=== PATIENT | female | born 1995 | race Caucasian/White ===

== ENCOUNTER 2019-05-22 19:04 | Emergency (ER) | payer MEDICAID, OTHER ==
[~2019-05-22] VITALS: Ht 170.2 cm; Wt 74.8 kg
[~2019-05-22 19:04] MED LIST: IBUP-2213 PO
[2019-05-22 19:20] VITALS: BP 106/56
--- NOTE | 2019-05-22 19:20 | NUR ---
TO BED # 08 AMBULATORY
--- NOTE | 2019-05-22 19:29 | NUR ---
24/F PRESENTS TO ED WITH FRIEND, C/O GENERALIZED WEAKNESS, NUMBNESS BL ARMS AND FEET, NAUSEA; REPORTS THAT SYMPTOMS STARTED LAST NIGHT WHILE ON A TRIP FROM [place] THIS WEEKEND. PT AWAKE AND ALERT, PERRLA [place], PT CRYING, SKIN NORMAL WARM AND DRY, RR EVEN AND UNLABORED. LUNG SOUNDS CLEAR BL. BS ACTIVE X4, ABD SOFT FLAT MILDLY TENDER DIFFUSELY. +2 STRENGTH ALL EXTREMITIES. DENIES MED HX, RX OR OTC.
--- NOTE | 2019-05-22 19:35 | NUR ---
DR ARRIOLA AT BEDSIDE FOR MSE
[2019-05-22] MEDS ORDERED: LORazepam 2 MG/ML VIAL IM ONE (19:45)
[2019-05-22 20:27] VITALS: BP 118/69
== END 2019-05-22 20:28 | disposition home or self-care (01) ==
LOC: MED 19:04
DX: F41.9 Anxiety disorder, unspecified (principal); R19.7 Diarrhea, unspecified; Z79.899 Other long term (current) drug therapy
CPT/HCPCS: 81025; 96372; 99283; J2060

== ENCOUNTER 2020-03-25 12:29 | Emergency (ER) | payer MEDICAID ==
[~2020-03-25] VITALS: Ht 170.2 cm; Wt 68.0 kg
[2020-03-25 12:47] VITALS: BP 111/74
[2020-03-25 13:37] LABS: BASOPHILS # (AUTO) 0.1 K/uL (0.00-0.22); BASOPHILS % (AUTO) 2.2 % (0.0-2.0); EOSINOPHILS # (AUTO) 0.1 K/uL (0-0.4); EOSINOPHILS % (AUTO) 1.8 % (0.0-4.0); HEMATOCRIT 41.8 % (36-48); HEMOGLOBIN 13.7 g/dL (12.0-16.0); LYMPHOCYTES # (AUTO) 1.7 K/uL (2.5-16.5); LYMPHOCYTES % (AUTO) 35.8 % (20.5-51.1); MEAN CORPUSCULAR HEMOGLOBIN 30 pg (27-31); MEAN CORPUSCULAR HGB CONC 33 g/dL (33-37); MEAN CORPUSCULAR VOLUME 92.6 fL (80-94); MONOCYTES # (AUTO) 0.2 K/uL (0.8-1.0); MONOCYTES % (AUTO) 5.1 % (1.7-9.3); NEUTROPHILS # (AUTO) 2.7 K/uL (1.8-7.7); NEUTROPHILS % (AUTO) 55.1 % (42.2-75.2); PLATELET COUNT (AUTO) 268 K/uL (140-450); RED BLOOD CELL COUNT(AUTO) 4.52 MIL/uL (4.20-5.40); RED CELL DISTRIBUTION WIDTH 12.2 % (11.6-13.7); WHITE BLOOD COUNT (AUTO) 4.9 K/uL (4.8-10.8)
[2020-03-25 13:40] LABS: APPEARANCE,URINE CLEAR (CLEAR); BILIRUBIN,URINE 1+ (NEGATIVE); BLOOD, URINE NEGATIVE (NEGATIVE); COLOR,URINE YELLOW (YELLOW); LEUKOCYTE ESTERASE ,URINE NEGATIVE (NEGATIVE); NITRITE, URINE NEGATIVE (NEGATIVE); PH,URINE 5.5 (5.0-9.0); UGLUCOSE NEGATIVE (NEGATIVE)
[2020-03-25 15:00] VITALS: BP 104/69
== END 2020-03-25 15:00 | disposition home or self-care (01) ==
LOC: MED 12:29
DX: O36.4XX0 Maternal care for intrauterine death, not applicable or unspecified (principal); Z3A.11 11 weeks gestation of pregnancy
CPT/HCPCS: 36415; 76801; 81003; 81025; 84702; 85025; 86900; 86901; 99284; Q0092; 96365; 99285

== ENCOUNTER 2020-04-06 11:38 | Inpatient (IN) | payer MEDICAID ==
[~2020-04-06] VITALS: Ht 170.2 cm; Wt 69.4 kg
--- NOTE | 2020-04-06 11:38 | NUR ---
Patient ambulated to bed 6. RN evaluating patient at bedside.
[2020-04-06 11:49] VITALS: BP 117/75
--- NOTE | 2020-04-06 11:54 | NUR ---
PT C/O VAGINAL BLEEDING WITH LOWER ABD CRAMPING. PT STATES THAT SHE STARTED SPOTTING YESTERDAY. IN THE AM, PT NOTICED SHE HAD VAGINAL BLEEDING. PT STATES SHE WAS . PT CONTACTED HER OBGYN. PT STATES SHE IS HAVING MISSCAIRAGE. PT STATES THAT THE BABY'S HEART BEAT STOPPED AT 11 WEEKS THE PT STATES THAT SHE CHANGED HER PAD 2 TIME BEFORE ARRIVAL TO ER. VSS. PT IS RESTING AT BEDSIDE. [facility] NKA/NKDA.
--- NOTE | 2020-04-06 12:03 | NUR ---
ULTRA SOUND AT BEDSIDE.
--- NOTE | 2020-04-06 12:10 | NUR ---
LAB AT BEDSIDE
[2020-04-06 12:18] LABS: BASOPHILS % (AUTO) 0.6 % (0.0-2.0); EOSINOPHILS # (AUTO) 0.1 K/uL (0-0.4); EOSINOPHILS % (AUTO) 1.2 % (0.0-4.0); HEMATOCRIT 39.5 % (36-48); HEMOGLOBIN 13.3 g/dL (12.0-16.0); LYMPHOCYTES # (AUTO) 1.6 K/uL (2.5-16.5); LYMPHOCYTES % (AUTO) 23.9 % (20.5-51.1); MEAN CORPUSCULAR HEMOGLOBIN 31 pg (27-31); MEAN CORPUSCULAR HGB CONC 34 g/dL (33-37); MEAN CORPUSCULAR VOLUME 92.8 fL (80-94); MONOCYTES # (AUTO) 0.3 K/uL (0.8-1.0); MONOCYTES % (AUTO) 4.1 % (1.7-9.3); NEUTROPHILS # (AUTO) 4.7 K/uL (1.8-7.7); NEUTROPHILS % (AUTO) 70.2 % (42.2-75.2); PLATELET COUNT (AUTO) 252 K/uL (140-450); RED BLOOD CELL COUNT(AUTO) 4.26 MIL/uL (4.20-5.40); RED CELL DISTRIBUTION WIDTH 12.2 % (11.6-13.7); WHITE BLOOD COUNT (AUTO) 6.7 K/uL (4.8-10.8)
--- NOTE | 2020-04-06 12:30 | NUR ---
Dr. Daley is evaluating the patient at bedside.
[2020-04-06 12:34] LABS: APPEARANCE,URINE BLOODY (CLEAR); BILIRUBIN,URINE NEGATIVE (NEGATIVE); BLOOD, URINE 4+ (NEGATIVE); COLOR,URINE RED (YELLOW); UGLUCOSE NEGATIVE (NEGATIVE)
[2020-04-06 12:35] LABS: LEUKOCYTE ESTERASE ,URINE 1+ (NEGATIVE); NITRITE, URINE POSITIVE (NEGATIVE)
[2020-04-06 12:39] LABS: RBC,URINE >100 /HPF (0-5)
--- NOTE | 2020-04-06 12:54 | NUR ---
PT IS RESTING AT BEDSIDE. PT IS AWAKE. R/R EVEN AND UNLABORED.
[2020-04-06] MEDS ORDERED: MISOPROSTOL 200 MCG TAB PO ONE (13:25)
--- NOTE | 2020-04-06 13:31 | NUR ---
CALLED DR STREETER, WAITING FOR CALL BACK FOR MEDICATION CLARIFICATION.
[2020-04-06] MEDS ORDERED: ONDANSETRON 4 MG/2 ML VIAL IVP ONE (14:00)
[2020-04-06] MEDS ORDERED: ACETAMINOPHEN 325 MG TAB PO PRN (14:15)
[2020-04-06] MEDS ORDERED: DOCUSATE SODIUM 100 MG GELCAP PO PRN (14:15)
[2020-04-06] MEDS ORDERED: ONDANSETRON 4 MG/2 ML VIAL IM/IVP PRN (14:15)
[2020-04-06 14:20] VITALS: BP 96/61
[2020-04-06] MEDS ORDERED: IBUPROFEN 800 MG TAB PO PRN (14:20)
--- NOTE | 2020-04-06 14:20 | NUR ---
RECEIVED PATIENT FROM ED NURSE FOR CONTINUITY OF CARE. PATIENT IS TRANSPORTED VIA GURNEY AND AMBULATED TO THE ROOM. AAOX4, KAZAKH SPEAKING. RESPIRATIONS EVEN AND UNLABORED, ROOM AIR. VISIBLE CHEST RISE AND FALL NOTED. MED-SURG. ABDOMEN SOFT AND NONTENDER. SKIN WARM, DRY, AND INTACT. IV ON THE RIGHT HAND G20, SALINE LOCK. DX: INCOMPLETE . DIAPER IS SOAKED WITH BRIGHT RED BLOOD. PATIENT STATED SHE FEELS SLIGHTLY LIGHTHEADED. FALL PRECAUTION. BED IN LOW POSITION. CALL LIGHT IS WITHIN REACH. WILL CONTINUE TO MONITOR.
--- NOTE | 2020-04-06 14:30 | NUR ---
VITAL SIGNS CHECKED. MRSA NARES SWAB COLLECTED
--- NOTE | 2020-04-06 14:36 | NUR ---
Patient will be admitted to care of DR. FARMER. Admited to [facility]. Will go to room 105B. Belongings list completed. Report to DINORA MENDEZ.
[2020-04-06 14:49] LABS: ALBUMIN 3.7 g/dL (3.4-5.0); ANION GAP 13.9 (8-16); CARBON DIOXIDE 24.7 mmol/L (21-32); CREATININE 0.8 mg/dL (0.6-1.3); MAGNESIUM 1.6 mg/dL (1.8-2.4); PHOSPHORUS 3.2 mg/dL (2.5-4.9); POTASSIUM 3.6 mmol/L (3.5-5.1); TOTAL BILIRUBIN 1.2 mg/dL (0.0-1.0)
[2020-04-06] MEDS: NACL 0.9% 1,000 ML IV SCH (14:56)
--- NOTE | 2020-04-06 15:07 | NUR ---
HANG NS AT A RATE OF 10 ML/HR PER MD ORDER Addendum: 04/06/20 at 1843 by Princess Ruth Mitchell RN AT 100 ML/HR
[2020-04-06 15:20] LABS: PROTHROMBIN TIME 10.3 secs (10.8-13.4)
[2020-04-06 16:00] VITALS: BP 94/62
--- NOTE | 2020-04-06 16:06 | NUR ---
PATIENT C/O OF PELVIC PAIN 06/18. WILL PAGE DR. MCDANIEL FOR ORDER. WILL WAIT FOR CALL BACK.
[2020-04-06] MEDS: NITROFURANTOIN 100 MG CAP PO SCH (16:38)
--- NOTE | 2020-04-06 16:49 | NUR ---
DR. OVALLE, RESIDENT DOCTOR OF DR. MCDANIEL, AT BEDSIDE.
[2020-04-06] MEDS ORDERED: HYDROcodone/APAP 5/325 MG 1 TAB TAB PO PRN (16:55)
[2020-04-06] MEDS ORDERED: MISOPROSTOL 200 MCG TAB PO SCH (17:25)
--- NOTE | 2020-04-06 17:37 | NUR ---
PATIENT SIGNED CONSENT FOR DILATATION AND CURETTAGE. EXPLAINED THAT IF SHE HAS ANY QUESTIONS, ASK THE SURGEON OR ANY QUESTIONS THAT IM ABLE TO ANSWER. PATIENT VERBALIZED UNDERSTANDING
--- NOTE | 2020-04-06 17:39 | NUR ---
GIVEN CYTOTEC PO. EXPLAINED MEDICATION. PATIENT VERBALIZED UNDERSTANDING. PATIENT C/O OF PELVIC PAIN MOSTLY IN THE LEFT SIDE OF 3/10 PAIN. PATIENT STATED SHE DOES NOT WANT PAIN MEDICATION RIGHT NOW. WILL CONTINUE TO MONITOR
--- NOTE | 2020-04-06 18:01 | NUR ---
PATIENT HAD ANOTHER PAD THAT IS SOAKED WITH BRIGHT RED BLOOD. VP SECURITIES ASSISTING/CHANGING PATIENT.
[2020-04-06] MEDS ORDERED: ONDANSETRON 4 MG/2 ML VIAL ONE (19:00)
[2020-04-06] MEDS ORDERED: PROPOFOL 200 MG/20 ML VIAL IV ONE (19:00)
[2020-04-06] MEDS ORDERED: SEVOFLURANE 250 ML BTL INH ONE (19:00)
[2020-04-06] MEDS ORDERED: MIDAZOLAM 2 MG/2 ML VIAL ONE (19:00)
--- NOTE | 2020-04-06 19:13 | NUR ---
ENDORSE PT AND GAVE REPORT TO THE AIRSET MOLDER RN. PT IS CURRENTLY IN THE OPERATION ROOM.
--- NOTE | 2020-04-06 19:15 | NUR ---
PT IS OFF UNIT TO SX. RECEIVED REPORT FROM AM SHIFT RN FOR PT'S CONTINUITY OF CARE.
[2020-04-06] MEDS ORDERED: HYDROmorphone PFS 2 MG/ML SYR ONE (20:08)
[2020-04-06] MEDS: HYDROmorphone 1 MG/ML AMP IVP PRN ×2 (20:09→20:19)
[2020-04-06 20:17] LABS: BASOPHILS # (AUTO) 0.1 K/uL (0.00-0.22); BASOPHILS % (AUTO) 0.7 % (0.0-2.0); EOSINOPHILS % (AUTO) 0.2 % (0.0-4.0); HEMATOCRIT 33.6 % (36-48); HEMOGLOBIN 11.3 g/dL (12.0-16.0); LYMPHOCYTES % (AUTO) 22.1 % (20.5-51.1); MEAN CORPUSCULAR HEMOGLOBIN 31 pg (27-31); MEAN CORPUSCULAR HGB CONC 34 g/dL (33-37); MEAN CORPUSCULAR VOLUME 92.8 fL (80-94); MONOCYTES # (AUTO) 0.4 K/uL (0.8-1.0); MONOCYTES % (AUTO) 4.4 % (1.7-9.3); NEUTROPHILS # (AUTO) 6.6 K/uL (1.8-7.7); NEUTROPHILS % (AUTO) 72.6 % (42.2-75.2); PLATELET COUNT (AUTO) 245 K/uL (140-450); RED BLOOD CELL COUNT(AUTO) 3.62 MIL/uL (4.20-5.40); RED CELL DISTRIBUTION WIDTH 12.1 % (11.6-13.7); WHITE BLOOD COUNT (AUTO) 9.1 K/uL (4.8-10.8)
[2020-04-06] MEDS ORDERED: LACTATED RINGERS 1,000 ML IV SCH (20:21)
[2020-04-06] MEDS ORDERED: ONDANSETRON 4 MG/2 ML VIAL IVP PRN (20:25)
[2020-04-06] MEDS ORDERED: diphenhydrAMINE 50 MG/ML VIAL IVP PRN (20:25)
--- NOTE | 2020-04-06 20:45 | NUR ---
PT BACK IN UNIT, POST OP VS PROTOCOL INITIATED. PT DENIES ANY PAIN AT THIS TIME. PT IS AAOX4, RESTING COMFORTABLY. EXPLAINED TO PT THE TICKER INSTALLER ROUTINE, PT VERBALIZED UNDERSTANDING. PT REQUESTED AND PROVIDED ICE WATER, PT TOLERATING IT WELL.
--- NOTE | 2020-04-06 23:00 | NUR ---
PT LYING DOWN IN BED,STATES CAN'T GET UP/WEAK DT SX, INSTRUCTED PT TO USE CALL LIGHT WHEN NEEDED, PT VERBALIZED UNDERSTANDING. PT'S BP RANGE BETWEEN 92-94 SYSTOLIC AND 48-59 DIASTOLIC. WILL INFORM MD. PT DENIES ANY PAIN.
[2020-04-07] VITALS: BP 94/59
--- NOTE | 2020-04-07 | NUR ---
NOTIFIED DR. MCDANIEL RE: PT'S WEAKNESS AND BP. MD ORDERED PT TO BE MOVED INPATIENT UNTIL PT TOLERATES REGULAR DIET. MD AWARE WITH BP, NO NEW ORDERS. WILL CONTINUE TO MONITOR PT.
[2020-04-07] MEDS: NACL 0.9% 1,000 ML IV SCH ×2 (01:05→10:48)
--- NOTE | 2020-04-07 02:15 | NUR ---
PT ASLEEP WITH NO SIGNS OF DISTRESS. WILL CONTINUE TO MONITOR PT.
--- NOTE | 2020-04-07 04:45 | NUR ---
PT AMBULATED TO THE RESTROOM, VOIDED, NOTED VAGINAL BLEEDING X 2 PADS THROUGHOUT THE SHIFT. PT DENIES ANY PAIN, STATES "FEELS A LITTLE LIGHT HEADED". PT'S LINENS CHANGED AND PT MADE COMFORTABLE. WILL CONTINUE TO MONITOR PT.
--- NOTE | 2020-04-07 06:41 | NUR ---
RE-CHECKED PT'S BLOOD PRESSURE, BRACHIAL BP 80/45 AND 81/46 AND RIGHT CALF 103/60. DR. MCDANIEL AWARE, NO NEW ORDERS. PT LYING DOWN RESTING, DENIES PAIN OR DISCOMFORT. WILL ENDORSE TO AM SHIFT RN FOR PT'S CONTINUITY OF CARE.
--- NOTE | 2020-04-07 07:20 | NUR ---
RECEIVED REPORT FROM NIGHT NURSE FOR CONTINUITY OF CARE, PT IS STABLE, PT IS ASLEEP, RESPIRATIONS ARE EVEN AND UNLABORED ON ROOM AIR, PT HAS RIGHT AC 20G INFUSING NORMAL SALINE AT 100ML/H, BED IN LOW POSITION, SAFETY MEASURES IN PLACE, WILL INTRODUCE SELF AND UPDATE WHITEBOARD, CALL LIGHT WITHIN REACH, WILL CONTINUE TO MONITOR.
[2020-04-07 08:00] VITALS: BP 91/50
[2020-04-07] MEDS: NITROFURANTOIN 100 MG CAP PO SCH (08:17)
--- NOTE | 2020-04-07 08:18 | NUR ---
ADMINISTERED SCHEDULED MEDICATION, MEDICATION EDUCATION GIVEN, PT VERBALIZED UNDERSTANDING, PT TOLERATED MEDICATION WELL, PT IS STABLE, CALL LIGHT WITHIN REACH.
--- NOTE | 2020-04-07 09:46 | NUR ---
PATIENT HAS BEEN SCREENED AND CATEGORIZED MODERATE NUTRITION RISK. PATIENT WILL BE SEEN WITHIN 3-5 DAYS OF ADMISSION. 04/09/2020-04/11/[address]
--- NOTE | 2020-04-07 10:49 | NUR ---
ADMINISTERED SCHEDULED FLUIDS, EDUCATION GIVEN, PT VERBALIZED UNDERSTANDING, PT IS STABLE, NO SIGNS OF DISTRESS NOTED, CALL LIGHT WITHIN REACH.
--- NOTE | 2020-04-07 11:00 | NUR ---
PT RESTING IN BED, TALKING ON THE PHONE, NO SIGNS OF DISTRESS NOTED, RESPIRATIONS ARE EVEN AND UNLABORED ON ROOM AIR, CALL LIGHT WITHIN REACH.
--- NOTE | 2020-04-07 13:30 | NUR ---
PT DISCHARGED HOME. DISCHARGED INSTRUCTIONS GIVEN, PT VERBALIZED UNDERSTANDING, IV REMOVED, PT WHEELED OUT TO CAR, PT STABLE.
== END 2020-04-07 13:30 | disposition home or self-care (01) | DRG 544 ==
LOC: MED 11:38 → MTU 13:56 → MDS 13:56 → UNDOADMIN 21:29 → MTU 21:29
PROVIDERS: ADMIT Obstetrics & Gynecology; ATTEND Obstetrics & Gynecology
PROC: 10D17ZZ Extraction of Products of Conception, Retained, Via Natural or Artificial Opening (ICD-10-PCS; principal; 2020-04-07)
DX: O03.38 Urinary tract infection following incomplete spontaneous abortion (principal); O03.1 Delayed or excessive hemorrhage following incomplete spontaneous abortion
CPT/HCPCS: 36415; 76817; 80053; 81001; 83735; 84100; 84702; 85025; 85610; 85730; 87081; 87086; 96374; 99285; J1170; J2250; J2405; J2704; J7030; Q0092

== ENCOUNTER 2020-07-16 07:46 | Emergency (ER) | payer SELFPAY ==
[~2020-07-16] VITALS: Ht 170.2 cm; Wt 71.2 kg
[2020-07-16 07:53] VITALS: BP 130/84
--- NOTE | 2020-07-16 08:04 | NUR ---
PT AMBULATED TO BED 4. STEADY GAIT.
--- NOTE | 2020-07-16 08:12 | NUR ---
25 YO FEMALE CO WEAKNESS X 1 WEEK. PT SAYS AFTER HER Miscarriage A COUPLE OF MONTHS AGO SHES BEEN HAVING HEAVIER BLEEDING DURING HER MENSTRUAL. +FATIGUE. NKDA. PMH: MISCARRIAGE
[2020-07-16 08:47] LABS: BASOPHILS % (AUTO) 0.8 % (0.0-2.0); EOSINOPHILS # (AUTO) 0.1 K/uL (0-0.4); EOSINOPHILS % (AUTO) 1.4 % (0.0-4.0); HEMATOCRIT 39.9 % (36-48); HEMOGLOBIN 12.4 g/dL (12.0-16.0); LYMPHOCYTES # (AUTO) 1.5 K/uL (2.5-16.5); LYMPHOCYTES % (AUTO) 35.9 % (20.5-51.1); MEAN CORPUSCULAR HEMOGLOBIN 25 pg (27-31); MEAN CORPUSCULAR HGB CONC 31 g/dL (33-37); MONOCYTES # (AUTO) 0.4 K/uL (0.8-1.0); MONOCYTES % (AUTO) 9.7 % (1.7-9.3); NEUTROPHILS # (AUTO) 2.2 K/uL (1.8-7.7); NEUTROPHILS % (AUTO) 52.2 % (42.2-75.2); PLATELET COUNT (AUTO) 284 K/uL (140-450); RED BLOOD CELL COUNT(AUTO) 4.98 MIL/uL (4.20-5.40); RED CELL DISTRIBUTION WIDTH 16.6 % (11.6-13.7); WHITE BLOOD COUNT (AUTO) 4.3 K/uL (4.8-10.8)
[2020-07-16 08:58] LABS: ANION GAP 10.2 (8-16); CARBON DIOXIDE 28.6 mmol/L (21-32); CREATININE 0.8 mg/dL (0.6-1.3); POTASSIUM 3.8 mmol/L (3.5-5.1)
[2020-07-16 09:45] VITALS: BP 127/81
--- NOTE | 2020-07-16 09:46 | NUR ---
Patient discharged with v/s stable. Written and verbal after care instructions given and explained. Patient verbalized understanding. Ambulatory with steady gait. All questions addressed prior to discharge. Advised to follow up with PMD.
== END 2020-07-16 09:46 | disposition home or self-care (01) ==
LOC: MED 07:46
DX: R53.1 Weakness (principal); F12.90 Cannabis use, unspecified, uncomplicated; Z79.899 Other long term (current) drug therapy; Z98.890 Other specified postprocedural states
CPT/HCPCS: 36415; 80048; 81025; 84703; 85025; 99283

== ENCOUNTER 2021-05-17 12:47 | Emergency (ER) | payer MEDICAID, SELFPAY ==
[~2021-05-17] VITALS: Ht 170.2 cm; Wt 81.6 kg
[2021-05-17 12:52] VITALS: BP 112/71
--- NOTE | 2021-05-17 13:02 | NUR ---
Patient ambulated to bed 12 with steady/even gait. Placed into a gown.
--- NOTE | 2021-05-17 13:06 | NUR ---
Patient ambulated with steady/even gait to restroom for urine sample.
--- NOTE | 2021-05-17 13:09 | NUR ---
26 y/o female from home 33 wks report waking up @ 0600 with headache; frontal and occiptal 8/10, throbbing/constant, non-radiating. +Fatigue/weakness, +blurry vision, +nausea, +vomiting x 3 episodes (-)hemaemesis. Tylenol 500mg 0600 without relief; reports Tylenol normally helps but states symptoms persisted. A1. LMP: 09/2020. PMH: Denies Meds: NKA Sx: DnC 2019
[2021-05-17] MEDS ORDERED: NACL 0.9% 1,000 ML IV ONE (13:20)
--- NOTE | 2021-05-17 13:55 | NUR ---
OB NURSE AT BEDSIDE FOR HEART TONES
--- NOTE | 2021-05-17 13:59 | NUR ---
HEART TONE 146 PER OB NURSE
[2021-05-17] MEDS ORDERED: ACETAMINOPHEN EXTRA STRENGTH 500 MG TAB PO ONE (14:00)
--- NOTE | 2021-05-17 14:00 | NUR ---
PT ALERT AND AWAKE, BREATHING EVEN AND UNLABORED, NO DISTRESS NOTED. ALL NEEDS MET AT THIS TIME.
[2021-05-17 14:09] LABS: APPEARANCE,URINE CLEAR (CLEAR); BILIRUBIN,URINE NEGATIVE (NEGATIVE); BLOOD, URINE NEGATIVE (NEGATIVE); COLOR,URINE YELLOW (YELLOW); LEUKOCYTE ESTERASE ,URINE TRACE (NEGATIVE); NITRITE, URINE NEGATIVE (NEGATIVE); PH,URINE 7.5 (5.0-9.0); UGLUCOSE NEGATIVE (NEGATIVE)
[2021-05-17] MEDS ORDERED: ACET-10509 PO (14:32)
[2021-05-17 14:59] VITALS: BP 110/79
--- NOTE | 2021-05-17 15:00 | NUR ---
Patient discharged with v/s stable. Written and verbal after care instructions about third trimester of , general headaches without cause given and explained. Patient alert, oriented and verbalized understanding of instructions. Ambulatory with steady gait. All questions addressed prior to discharge. ID band removed. Patient advised to follow up with PMD. Rx of about tylenol given. Patient educated on indication of medication including possible reaction and side effects. Opportunity to ask questions provided and answered.
== END 2021-05-17 15:00 | disposition home or self-care (01) ==
LOC: MED 12:47
DX: O26.893 Other specified pregnancy related conditions, third trimester (principal); R51.9 Headache, unspecified; Z3A.33 33 weeks gestation of pregnancy; Z98.890 Other specified postprocedural states; Z79.899 Other long term (current) drug therapy
CPT/HCPCS: 81003; 81025; 96360; 99284; J7030

== ENCOUNTER 2021-06-17 19:30 | Observation (INO) | payer MEDICAID ==
[~2021-06-17] VITALS: Ht 170.2 cm; Wt 88.9 kg
[~2021-06-17 19:30] MED LIST changes: +ACET-10509 PO
[2021-06-17] MEDS ORDERED: APAP/BUTAL/CAFF 325/50/40 MG 1 TAB PO PRN ×2 (20:10→20:20)
[2021-06-17] MEDS ORDERED: LACTATED RINGERS 1,000 ML IV SCH ×2 (20:10→21:10)
[2021-06-17 21:09] VITALS: BP 116/81
[2021-06-17 21:19] LABS: BASOPHILS % (AUTO) 0.2 % (0.0-2.0); EOSINOPHILS # (AUTO) 0.1 K/uL (0-0.4); EOSINOPHILS % (AUTO) 1.9 % (0.0-4.0); HEMATOCRIT 33.8 % (36-48); HEMOGLOBIN 11.3 g/dL (12.0-16.0); LYMPHOCYTES # (AUTO) 1.8 K/uL (2.5-16.5); LYMPHOCYTES % (AUTO) 35.2 % (20.5-51.1); MEAN CORPUSCULAR HEMOGLOBIN 31 pg (27-31); MEAN CORPUSCULAR HGB CONC 34 g/dL (33-37); MEAN CORPUSCULAR VOLUME 91.4 fL (80-94); MONOCYTES # (AUTO) 0.4 K/uL (0.8-1.0); MONOCYTES % (AUTO) 7.3 % (1.7-9.3); NEUTROPHILS # (AUTO) 2.8 K/uL (1.8-7.7); NEUTROPHILS % (AUTO) 55.4 % (42.2-75.2); PLATELET COUNT (AUTO) 240 K/uL (140-450); RED CELL DISTRIBUTION WIDTH 13.2 % (11.6-13.7); WHITE BLOOD COUNT (AUTO) 5.1 K/uL (4.8-10.8)
[2021-06-17 21:22] LABS: APPEARANCE,URINE SL CLOUDY (CLEAR); BILIRUBIN,URINE NEGATIVE (NEGATIVE); BLOOD, URINE NEGATIVE (NEGATIVE); COLOR,URINE YELLOW (YELLOW); LEUKOCYTE ESTERASE ,URINE NEGATIVE (NEGATIVE); NITRITE, URINE NEGATIVE (NEGATIVE); UGLUCOSE NEGATIVE (NEGATIVE)
[2021-06-17 21:43] LABS: ALBUMIN 2.3 g/dL (3.4-5.0); ANION GAP 11.6 (8-16); CARBON DIOXIDE 24.1 mmol/L (21-32); CREATININE 0.6 mg/dL (0.6-1.3); POTASSIUM 3.7 mmol/L (3.5-5.1); TOTAL BILIRUBIN 0.4 mg/dL (0.0-1.0)
== END 2021-06-17 23:00 | disposition home or self-care (01) ==
LOC: MLD 19:30
PROVIDERS: ADMIT Obstetrics & Gynecology; ATTEND Obstetrics & Gynecology
DX: O26.893 Other specified pregnancy related conditions, third trimester (principal); R51.9 Headache, unspecified; Z3A.37 37 weeks gestation of pregnancy
CPT/HCPCS: 36415; 59025; 80053; 81003; 85025; 96360; 96361; G0378

== ENCOUNTER 2021-06-25 02:13 | Emergency (ER) | payer MEDICAID ==
[~2021-06-25] VITALS: Ht 170.2 cm; Wt 89.8 kg
[2021-06-25 02:20] VITALS: BP 116/82
--- NOTE | 2021-06-25 02:20 | NUR ---
TO BED AMBULATORY
--- NOTE | 2021-06-25 02:44 | NUR ---
ERMD AT BEDSIDE.
--- NOTE | 2021-06-25 02:48 | NUR ---
PT BIB SELF FOR C/C HEADACHE SINCE 1999 LAST NIGHT. + N/V. VSS. MED HX: MISCARRIAGE ALLERGIES: NKA
[2021-06-25] MEDS ORDERED: MORPHINE SULFATE 4 MG/ML SYR IM ONE (02:50)
[2021-06-25] MEDS ORDERED: ONDANSETRON 4 MG ODT PO ONE (02:50)
[2021-06-25 03:50] VITALS: BP 125/76
[2021-06-25] MEDS ORDERED: PRETAB PO (22:58)
== END 2021-06-25 03:50 | disposition home or self-care (01) ==
LOC: MED 02:13
DX: O99.353 Diseases of the nervous system complicating pregnancy, third trimester (principal); R51.9 Headache, unspecified; Z3A.39 39 weeks gestation of pregnancy; Z79.1 Long term (current) use of non-steroidal anti-inflammatories (NSAID); Z79.899 Other long term (current) drug therapy
CPT/HCPCS: 81002; 96372; 99283; J2270; Q0162

== ENCOUNTER 2021-08-23 18:52 | Emergency (ER) | payer MEDICAID, SELFPAY ==
[~2021-08-23] VITALS: Ht 170.2 cm; Wt 74.4 kg
[~2021-08-23 18:52] MED LIST changes: -ACET-10509 PO; -IBUP-2213 PO; +PRETAB PO
[2021-08-23 18:58] VITALS: BP 153/93
[2021-08-23] MEDS ORDERED: LIDOCAINE MPF 1% 10 MG/ML VIAL INJ ONE (19:20)
--- NOTE | 2021-08-23 19:25 | NUR ---
LEFT GREAT TOE DRESSED WITH BACITRACIN AND DSD. PT TEACHING DONE
--- NOTE | 2021-08-23 19:30 | NUR ---
received in bed 7 with c/o left toe pain after dropping heavy box on left great toa at approx 1600. Nail is avulsed.
[2021-08-23] MEDS ORDERED: NAPR-54 PO (19:40)
[2021-08-23] MEDS ORDERED: BACITRACIN OINT 500 UNITS/GM PKT TP ONE (19:45)
[2021-08-23 19:53] VITALS: BP 153/93
== END 2021-08-23 19:53 | disposition home or self-care (01) ==
LOC: MED 18:52
DX: S91.202A Unspecified open wound of left great toe with damage to nail, initial encounter (principal); Z79.1 Long term (current) use of non-steroidal anti-inflammatories (NSAID); Z79.899 Other long term (current) drug therapy; W22.8XXA Striking against or struck by other objects, initial encounter; Y92.89 Other specified places as the place of occurrence of the external cause; Y93.89 Activity, other specified; Y99.8 Other external cause status
CPT/HCPCS: 11730; 99284; J2001

== ENCOUNTER 2021-09-24 16:23 | Observation (INO) | payer OTHER, SELFPAY ==
[~2021-09-24] VITALS: Ht 170.2 cm; Wt 63.5 kg
[~2021-09-24 16:23] MED LIST changes: +NAPR-54 PO
[2021-09-24 16:48] VITALS: BP 105/54
[2021-09-24 17:29] LABS: BASOPHILS % (AUTO) 0.3 % (0.0-2.0); EOSINOPHILS % (AUTO) 0.5 % (0.0-4.0); HEMATOCRIT 41.6 % (36-48); HEMOGLOBIN 13.9 g/dL (12.0-16.0); LYMPHOCYTES # (AUTO) 1.5 K/uL (2.5-16.5); MEAN CORPUSCULAR HEMOGLOBIN 28 pg (27-31); MEAN CORPUSCULAR HGB CONC 33 g/dL (33-37); MEAN CORPUSCULAR VOLUME 84.3 fL (80-94); MONOCYTES # (AUTO) 0.2 K/uL (0.8-1.0); MONOCYTES % (AUTO) 3.2 % (1.7-9.3); NEUTROPHILS # (AUTO) 5.7 K/uL (1.8-7.7); PLATELET COUNT (AUTO) 293 K/uL (140-450); RED BLOOD CELL COUNT(AUTO) 4.94 MIL/uL (4.20-5.40); RED CELL DISTRIBUTION WIDTH 13.5 % (11.6-13.7); WHITE BLOOD COUNT (AUTO) 7.5 K/uL (4.8-10.8)
[2021-09-24 17:50] LABS: ALBUMIN 4.3 g/dL (3.4-5.0); ANION GAP 12.1 (8-16); CARBON DIOXIDE 27.8 mmol/L (21-32); CREATININE 0.8 mg/dL (0.6-1.3); POTASSIUM 3.9 mmol/L (3.5-5.1); TOTAL BILIRUBIN 1.5 mg/dL (0.0-1.0)
--- NOTE | 2021-09-24 17:58 | NUR ---
PT AMBULATED TO ER BED 9
--- NOTE | 2021-09-24 18:34 | NUR ---
26/F BIB SELF WITH C/O EPIGASTRIC PAIN SINCE 2 AM. PATIENT STATES PAIN HAS BEEN CONTINUOUS AND SHARP IN NATURE, REPORTS PAIN IS UNPROVOKED, RATES IT 910. PATIENT STATES SHE TOOK TUMS WITH NO RELIEF, REPORTS INTERMITTENT EPISODES OF NAUSEA, 3 EPISODES OF VOMITING AND 2 EPISODES OF DIARRHEA SINCE PAIN BEGAN. PATIENT DENIES URINARY SYMPTOMS, CP, SOB, FEVER OR CHILLS.
[2021-09-24] MEDS ORDERED: ACETAMINOPHEN 325 MG TAB PO ONE (19:00)
--- NOTE | 2021-09-24 19:20 | NUR ---
Pt report given to ELENA FARIAS. Transfer of care at this time.
[2021-09-24 19:24] LABS: APPEARANCE,URINE CLEAR (CLEAR); BILIRUBIN,URINE NEGATIVE (NEGATIVE); BLOOD, URINE NEGATIVE (NEGATIVE); COLOR,URINE YELLOW (YELLOW); LEUKOCYTE ESTERASE ,URINE NEGATIVE (NEGATIVE); NITRITE, URINE NEGATIVE (NEGATIVE); UGLUCOSE NEGATIVE (NEGATIVE)
--- NOTE | 2021-09-24 21:20 | NUR ---
PATIENT IN BED IN NO ACUTE DISTRESS OR DISCOMFORT.
[2021-09-24] MEDS ORDERED: PIPERACILLIN/TAZOBACTAM 3.375 GM in DEXTROSE 5% 50 ML IV ONE (22:00)
[2021-09-24] MEDS ORDERED: POTASSIUM CHLORIDE 10 MEQ TABER PO PRN (22:35)
[2021-09-24] MEDS: NACL 0.9% 1,000 ML IV SCH (22:35)
[2021-09-24] MEDS ORDERED: ACETAMINOPHEN 325 MG TAB PO PRN (22:35)
[2021-09-24] MEDS ORDERED: MORPHINE SULFATE 4 MG/ML SYR IVP PRN (22:35)
[2021-09-24] MEDS ORDERED: KCL 20 MEQ/WATER INJ PREMIX 200 ML IV PRN (22:35)
[2021-09-24] MEDS ORDERED: MAGNESIUM OXIDE 400 MG TAB PO PRN (22:35)
[2021-09-24] MEDS ORDERED: MAG SULF 2000 MG/WATER PREMIX 50 ML IV PRN (22:35)
--- NOTE | 2021-09-24 22:45 | NUR ---
LIAM DONE ON PT AND GIVEN TO COLT FROM LAB.
[2021-09-24] MEDS ORDERED: PIPERACILLIN/TAZOBACTAM 3.375 GM VIAL IV ONE (22:47)
--- NOTE | 2021-09-24 23:09 | NUR ---
PATIENT LYING IN BED IN NO OBVIOUS DISTRESS OR DISCOMFORT AT THIS TIME.
--- NOTE | 2021-09-24 23:26 | NUR ---
REPORT GIVEN TO RUPERT FARIAS MST AT THIS TIME, PATIENT MOVED VIA WHEELCHAIR TO BED
--- NOTE | 2021-09-24 23:30 | NUR ---
PATIENT ADMITTED FROM ED VIA WHEELCHAIR AT 2327 TO MS WITH CHIEF COMPLAINT OF UPPER ABD PAIN RADIATING ACROSS RLQ SHARP PAIN 07/19 WITH ONSET AT 0200. PATIENT IS 26 Y/O FEMALE AND COOPERATIVE. A&OX4. VERBALLY RESPONSIVE AND ABLE TO COMMUNICATE NEEDS. PATIENT REPORTED EPISODES OF NAUSEA AND VOMITING WITH 2 LOOSE STOOLS THIS MORNING. PATIENT REPORTED THAT SHE ATTEMPTED TO RELIEVE DISCOMFORT AND PAIN BY REPOSITIONING BUT NOTHING HELPED PRIOR TO ADMISSION TO ED. PATIENT IS ON ROOM AIR WITH AN O2 SAT OF 100%. RESPIRATIONS EVEN AND UNLABORED. NO S/SX OF ACUTE DISTRESS. PATIENT DENIES PAIN AT THIS TIME. VS WNL. HEAD TO TOE ASSESSMENT COMPLETED WITH CHARGE NURSE MARGIE. MRSA SWAB COLLECTED AND COMPLETED. PATIENT IS NPO EXCEPT MEDS DUE TO PENDING LAP CHOLECYSTECTOMY ON 09/25/[address] DAVENPORT. IV SITE ON LAC 20G PATENT/INTACT SL. SKIN IS INTACT. PATIENT IS CONTINENT AND AMBULATORY. PATIENT REPORTS SOME WEAKNESS ASSOCIATED WITH GAIT. PATIENT IS ORIENTED TO CALL LIGHT, BED, PHONE, TELEVISION, BATHROOM, SMOKING POLICY, VISITING HOURS, PROCEDURES, AND ID BRACELET ON. BELONGINGS LIST CHECKED AND CURRENTLY ON BEDSIDE. WHITE BOARD COMMUNICATION UPDATED. ALL SAFETY MEASURES IN PLACE. CALL LIGHT WITHIN REACH. ENCOURAGED PATIENT TO USE CALL LIGHT FOR ANY NEEDS/ASSISTANCE. WILL CONTINUE TO MONITOR.
[2021-09-25] VITALS: BP 106/73
--- NOTE | 2021-09-25 01:30 | NUR ---
CHECKED PATIENT. STABLE AND ASLEEP IN LEFT SIDE-LYING POSITION. CHEST RISING AND FALLING. RESPIRATIONS EVEN AND UNLABORED. NO APPARENT S/SX OF ACUTE DISTRESS. WHITE COMMUNICATION BOARD UPDATED. ALL SAFETY MEASURES IN PLACE. CALL LIGHT WITHIN REACH. WILL CONTINUE TO MONITOR.
--- NOTE | 2021-09-25 03:30 | NUR ---
ROUNDED ON PATIENT. STABLE AND ASLEEP IN SUPINE POSITION. CHEST RISING AND FALLING. RESPIRATIONS EVEN AND UNLABORED. NO APPARENT S/SX OF ACUTE DISTRESS. WHITE COMMUNICATION BOARD UPDATED. ALL SAFETY MEASURES IN PLACE. CALL LIGHT WITHIN REACH. WILL CONTINUE TO MONITOR.
--- NOTE | 2021-09-25 03:52 | NUR ---
Patient's Plan of Care was discussed and reviewed with WOOD ROUTER: MELVIN OTOOLE
[2021-09-25] MEDS ORDERED: PIPERACILLIN/TAZOBACTAM 3.375 GM VIAL IV ONE (04:42)
--- NOTE | 2021-09-25 05:30 | NUR ---
CHECKED PATIENT. STABLE AND ASLEEP IN SUPINE POSITION. CHEST RISING AND FALLING. RESPIRATIONS EVEN AND UNLABORED. NO APPARENT S/SX OF ACUTE DISTRESS. WHITE COMMUNICATION BOARD UPDATED. ALL SAFETY MEASURES IN PLACE. CALL LIGHT WITHIN REACH. WILL CONTINUE TO MONITOR.
[2021-09-25] MEDS: PIPERACILLIN/TAZOBACTAM 3.375 GM in DEXTROSE 5% 50 ML IV SCH ×3 (05:56→18:00)
[2021-09-25 07:02] LABS: BASOPHILS % (AUTO) 0.5 % (0.0-2.0); EOSINOPHILS # (AUTO) 0.2 K/uL (0-0.4); EOSINOPHILS % (AUTO) 3.5 % (0.0-4.0); HEMOGLOBIN 12.9 g/dL (12.0-16.0); LYMPHOCYTES # (AUTO) 2.5 K/uL (2.5-16.5); LYMPHOCYTES % (AUTO) 46.1 % (20.5-51.1); MEAN CORPUSCULAR HEMOGLOBIN 28 pg (27-31); MEAN CORPUSCULAR HGB CONC 33 g/dL (33-37); MONOCYTES # (AUTO) 0.4 K/uL (0.8-1.0); MONOCYTES % (AUTO) 6.6 % (1.7-9.3); NEUTROPHILS # (AUTO) 2.4 K/uL (1.8-7.7); NEUTROPHILS % (AUTO) 43.3 % (42.2-75.2); PLATELET COUNT (AUTO) 263 K/uL (140-450); RED BLOOD CELL COUNT(AUTO) 4.58 MIL/uL (4.20-5.40); RED CELL DISTRIBUTION WIDTH 13.3 % (11.6-13.7); WHITE BLOOD COUNT (AUTO) 5.5 K/uL (4.8-10.8)
[2021-09-25 07:07] LABS: ALBUMIN 3.6 g/dL (3.4-5.0); ANION GAP 11.5 (8-16); CARBON DIOXIDE 29.3 mmol/L (21-32); CREATININE 0.9 mg/dL (0.6-1.3); MAGNESIUM 1.9 mg/dL (1.8-2.4); POTASSIUM 3.8 mmol/L (3.5-5.1); TOTAL BILIRUBIN 1.7 mg/dL (0.0-1.0)
--- NOTE | 2021-09-25 07:20 | NUR ---
PATIENT ENDORSED TO MORNING SHIFT FOR CONTINUITY OF CARE. PATIENT IS STABLE.
--- NOTE | 2021-09-25 07:30 | NUR ---
BEDSIDE REPORT RECEIVED. PT RESTING IN BED ON RIGHT SIDE . BREATHING IS SYMMETRICAL AND UNLABORED . ALL SAFETY MEASURES IN PLACE.
[2021-09-25] MEDS ORDERED: BUPIVACAINE-MPF/EPI 0.5% 30 ML VIAL INJ ONE (07:57)
[2021-09-25 08:00] VITALS: BP 130/77
[2021-09-25 08:17] LABS: PROTHROMBIN TIME 10.6 secs (10.8-13.4)
[2021-09-25] MEDS: DOCUSATE SODIUM 100 MG GELCAP PO SCH (08:56)
--- NOTE | 2021-09-25 10:26 | NUR ---
PT AMBULATED TO RESTROOM PT TOLERATED WELL/.. ALL SAFETY MEASURES ARE IN PLACE.
[2021-09-25] MEDS: NACL 0.9% 1,000 ML IV SCH (11:05)
--- NOTE | 2021-09-25 12:00 | NUR ---
MEDICATIONS GIVEN PER MD ORDER. PT EDUCATED AND VERBALIZED UNDERSTANDING ALL SAFETY MEASURES ARE IN PLACE.
--- NOTE | 2021-09-25 14:25 | NUR ---
PT COMPLAINS OF PAIN ON BREAST DUE TO NOT BREAST FEEDING AT THE MOMENT. PATIENT GIVEN WARM COMPRESSES. PT TOLERATED WELL AND DID MANUAL PUMPING FOR RELIEF OF SYMPTOMS. PATIENT STATES HER BABY IS 3 MONTHS OLD. ALLL SAFETY MEASURES ARE IN PLACE
--- NOTE | 2021-09-25 14:31 | NUR ---
PATIENT HAS BEEN SCREENED AND CATEGORIZED LOW NUTRITION RISK. PATIENT WILL BE SEEN WITHIN 7 DAYS OF ADMISSION. 10/01/[address]
--- NOTE | 2021-09-25 15:25 | NUR ---
PT ASKED TO REMOVE all jewelry and undergarments. patient given blue gown and given chlorhexidine wipes
--- NOTE | 2021-09-25 15:46 | NUR ---
DC PLANNING: THE PATIENT ADMITTED THROUGH THE ED FROM HOME WITH C/O ABDOMINAL PAIN, CHOLECYSTITIS CONFIRMED ON IMAGING. PATIENT TO OR FOR CHOLECYSTECTOMY WITH DR DAVENPORT TODAY. CM WILL FOLLOW FOR NEEDS.
[2021-09-25 16:00] VITALS: BP 97/61
--- NOTE | 2021-09-25 16:00 | NUR ---
MD DAVENPORT AT BEDSIDE . PATIENT EXPLAINED RISKS, MORTALITY AND MOBILITY RISK OF PROCEDURE . PT VERBALIZED UNDERSTANDING CONSENT OBTAINED. ALL SAFETY MEASURES ARE IN PLACE.
[2021-09-25] MEDS ORDERED: fentaNYL citrate 0.05 MG/ML VIAL ONE (16:20)
--- NOTE | 2021-09-25 16:20 | NUR ---
PATIENT LEFT UNIT FOR PROCEDURE. PT INSTABLE CONDITION
[2021-09-25] MEDS ORDERED: DESFLURANE 240 ML BTL INH ONE (16:34)
[2021-09-25] MEDS ORDERED: ONDANSETRON 4 MG/2 ML VIAL IVP PRN (17:00)
[2021-09-25] MEDS ORDERED: HYDROmorphone PFS 2 MG/ML SYR ONE ×2 (17:11→18:29)
[2021-09-25] MEDS ORDERED: ONDANSETRON 4 MG/2 ML VIAL ONE (17:44)
[2021-09-25] MEDS ORDERED: ROCURONIUM 50 MG/5 ML VIAL IV ONE (17:44)
[2021-09-25] MEDS ORDERED: DEXAMETHASONE 4 MG/ML VIAL ONE (17:44)
[2021-09-25] MEDS ORDERED: SUGAMMADEX SODIUM 200 MG/2 ML VIAL IV ONE (17:44)
[2021-09-25] MEDS ORDERED: PROPOFOL 200 MG/20 ML VIAL IV ONE (17:44)
[2021-09-25] MEDS ORDERED: KETOROLAC 30 MG/ML VIAL ONE (17:44)
[2021-09-25] MEDS ORDERED: SUCCINYLCHOLINE CHLORIDE 200 MG/10 ML VIAL IVP ONE (17:44)
[2021-09-25] MEDS: LACTATED RINGERS 1,000 ML IV SCH ×2 (18:25→20:11)
[2021-09-25] MEDS: HYDROmorphone 1 MG/ML AMP IVP PRN ×3 (18:30→18:50)
--- NOTE | 2021-09-25 19:00 | NUR ---
PATIENT IS BACK FROM PROCEDURE. PT HAS 4 LAPROSCOPIC INCISIONS , NO DRAIN . PT INSTABLE CONDITION ALL SAFETY EMASURES AR EIN PLACE.
--- NOTE | 2021-09-25 19:10 | NUR ---
PATIENT ENDORED TO CORPORATE RECEPTIONIST NURSE FOR CONTINUITY OF CARE, PT INSTABLE CONDITION
--- NOTE | 2021-09-25 19:11 | NUR ---
RECD. PATIENT RESTING IN BED, S/P LAP CHOLECYSTECTOMY. A/OX4, RESPIRATION EVEN AND UNLABORED. 02 SAT - 94- 100% ON ROOM AIR. ABDOMINAL INCISIONS (4) WITH DERMA CONTRERAS, ALL DRY AND INTACT, OPEN TO AIR. MADE COMFORTABLE IN BED WITH WARM BLANKETS. VS STABLE. PAIN IN THE ABDOMEN 11/18, WILL MEDICATE PER MD ORDER. WILL CONTINUE TO MONITOR.
--- NOTE | 2021-09-25 19:45 | NUR ---
CHECKED PATIENT, SLEEPING COMFORTABLY IN BED. RESPIRATION EVEN AND UNLABORED. 02 SA- 94% ON ROOM AIR, NO APPEATRANCE OF PAIN NOTED, 0/10.
[2021-09-25 20:00] VITALS: BP 112/74
[2021-09-25] MEDS: ONDANSETRON 4 MG/2 ML VIAL IVP PRN (20:22)
--- NOTE | 2021-09-25 20:22 | NUR ---
RESTING IN BED, WATCHING TV. NOT YET TOLERATING CLEAR LIQUID DIET. COMPLAINED OF NAUSEA, MEDICATED WITH ZOFRAN BY CHARGE NURSE ANDREA.
[2021-09-25] MEDS: HYDROcodone/APAP 5/325 MG 1 TAB TAB PO PRN (20:38)
--- NOTE | 2021-09-25 21:22 | NUR ---
NO NAUSEA NOTED, ICE CHIPS AND POPSICLE GIVEN. INSTRUCTED TO CALL NURSE WHEN NEEDING HELP. VERBALIZED UNDERSTANDING.
--- NOTE | 2021-09-25 22:30 | NUR ---
WITH FEELING OF DIZZINESS. ASSISTED TO USE THE BEDPAN, VOIDED 300 ML OF CLEAR YELLOW URINE.
[2021-09-26] VITALS: BP 102/72
[2021-09-26] MEDS: PIPERACILLIN/TAZOBACTAM 3.375 GM in DEXTROSE 5% 50 ML IV SCH ×3 (00:27→12:19)
[2021-09-26] MEDS: ONDANSETRON 4 MG/2 ML VIAL IVP PRN (00:35)
--- NOTE | 2021-09-26 00:35 | NUR ---
RESTING IN BED, RESPIRATION EVEN AND UNLABORED. STILL COMPLAINING OF NAUSEA. MEDICATED WITH ZOFRAN IVP BY CHARGE NURSE ANDREA.
[2021-09-26] MEDS: HYDROcodone/APAP 5/325 MG 1 TAB TAB PO PRN ×2 (01:08→14:46)
--- NOTE | 2021-09-26 01:30 | NUR ---
Patient's Plan of Care was discussed and reviewed with TURF KEEPER: MELVIN OTOOLE
--- NOTE | 2021-09-26 01:35 | NUR ---
RESTING COMFORTABLY IN BED, NO COMPLAINT OF NAUSEA.
--- NOTE | 2021-09-26 03:30 | NUR ---
ASSISTED TO GET OUT OF BED TO GO TO THE BR TO VOID. VOIDED MODERATE AMOUNT OF CLEAR YELLOW URINE. BEDDINGS CHANGED. MADE COMFORTABLE IN BED WITH PILLOWS.
[2021-09-26] MEDS: LACTATED RINGERS 1,000 ML IV SCH ×2 (04:25→14:25)
[2021-09-26 05:21] LABS: BASOPHILS % (AUTO) 0.3 % (0.0-2.0); EOSINOPHILS % (AUTO) 0.1 % (0.0-4.0); HEMATOCRIT 38.5 % (36-48); HEMOGLOBIN 12.7 g/dL (12.0-16.0); LYMPHOCYTES # (AUTO) 1.5 K/uL (2.5-16.5); LYMPHOCYTES % (AUTO) 20.5 % (20.5-51.1); MEAN CORPUSCULAR HEMOGLOBIN 28 pg (27-31); MEAN CORPUSCULAR HGB CONC 33 g/dL (33-37); MEAN CORPUSCULAR VOLUME 85.5 fL (80-94); MONOCYTES # (AUTO) 0.3 K/uL (0.8-1.0); MONOCYTES % (AUTO) 3.7 % (1.7-9.3); NEUTROPHILS # (AUTO) 5.6 K/uL (1.8-7.7); NEUTROPHILS % (AUTO) 75.4 % (42.2-75.2); PLATELET COUNT (AUTO) 250 K/uL (140-450); RED BLOOD CELL COUNT(AUTO) 4.51 MIL/uL (4.20-5.40); RED CELL DISTRIBUTION WIDTH 13.3 % (11.6-13.7); WHITE BLOOD COUNT (AUTO) 7.4 K/uL (4.8-10.8)
[2021-09-26 05:37] LABS: ALBUMIN 3.4 g/dL (3.4-5.0); ANION GAP 13.6 (8-16); CARBON DIOXIDE 26.1 mmol/L (21-32); CREATININE 0.8 mg/dL (0.6-1.3); MAGNESIUM 1.7 mg/dL (1.8-2.4); POTASSIUM 3.7 mmol/L (3.5-5.1); TOTAL BILIRUBIN 1.6 mg/dL (0.0-1.0)
--- NOTE | 2021-09-26 05:48 | NUR ---
Pt received on room air. Pt instructed on and performed IS. Best effort reached was 1100ml. Pt instructed to repeat 10x/hour while awake.
--- NOTE | 2021-09-26 06:00 | NUR ---
AWAKE IN BED, RESPIRATION EVEN AND UNLABORED. NO NAUSEA NOTED. ALREADY PASSING GAS BUT NO BM YET, ENCOURAGED TO AMBULATE MORE. TEACHINGS GIVEN ON THE IMPORTANCE OF EARLY AMBULATION, INCISION CARE AND IMPORTANCE OF GOOD NUTRITION IN WOUND HEALING. VERBALIZED UNDERSTANDING.
--- NOTE | 2021-09-26 07:15 | NUR ---
CONDITION REMAIN STABLE. ENDORSED TO AM SHIFT NURSE FOR CONTINUITY OF CARE.
--- NOTE | 2021-09-26 07:27 | NUR ---
RECEIVED REPORT FROM PHLEBOTOMY SPECIALIST NURSE. PT STABLE. NO S/S OF DISTRESS. BREATHING SYMMETRICAL. CALL LIGHT IN REACH. ALL SAFETY MEASURES IN PLACE. IV FLUIDS RUNNING PER MD ORDER. PT STATED PAIN IS 9/10 IN ABDOMEN.
[2021-09-26 08:00] VITALS: BP 107/75
[2021-09-26] MEDS: DOCUSATE SODIUM 100 MG GELCAP PO SCH (08:26)
--- NOTE | 2021-09-26 08:44 | NUR ---
PT RESTING IN BED. PT STABLE. NO S/S OF DISTRESS. BREATHING SYMMETRICAL. CALL LIGHT IN REACH. ALL SAFETY MEASURES IN PLACE. MEDICATIONS ADMINISTERED PER MD ORDER. PT VERBALIZED UNDERSTANDING OF EDUCATION. ALL QUESTIONS ANSWERED. PT REPOSITIONED, ABD BINDER REMOVED TO REDUCE PAIN. PT INSTRUCTED ON IS. PT WILL ATTEMPT WALKING AND USING RESTROOM BEFORE TAKING PAIN MEDICATION. WILL REASSESS FOR PAIN
--- NOTE | 2021-09-26 10:03 | NUR ---
PT PAIN WAS NOT RELIEVED. MEDICATED PER MD ORDER FOR PAIN. EDUCATED ON MEDICATION. PT VERBALIZED UNDERSTANDING. [place] LIGHT IN REACH. ALL SAFETY MEASURES IN PLACE.
--- NOTE | 2021-09-26 10:45 | NUR ---
PT REASSESSED FOR PAIN. PT STATED PAIN DECREASED TO 7/10. PT WALKED HALLWAY AFTER BEING MEDICATED. PT NOW IN BED. FAMILY AT BEDSIDE. NO S/S OF DISTRESS. CALL LIGHT IN REACH. ALL SAFETY MEASURES IN PLACE
--- NOTE | 2021-09-26 13:24 | NUR ---
PT RESTING IN BED. FAMILY AT BEDSIDE. PT INSTRUCTED AND USED IS. NO S/S OF DISTRESS. CALL LIGHT IN REACH. ALL SAFETY MEASURES IN PLACE
[2021-09-26] MEDS ORDERED: ACET-9525 PO (14:37)
--- NOTE | 2021-09-26 14:46 | NUR ---
PT STATED PAIN 04/18. PT MEDICATED PER MD ORDER. PT INSTRUCTED ON IS AND EDUCATED ON MEDICATION GIVEN. PT VERBALIZED UNDERSTANDING. NO S/S OF DISTRESS. CALL LIGHT IN REACH. ALL SAFETY MEASURES IN PLACE.
[2021-09-26 16:00] VITALS: BP 110/64
--- NOTE | 2021-09-26 16:48 | NUR ---
PT GIVEN DISCHARGE INSTRUCTIONS. PT VERBALIZED UNDERSTANDING. PT STABLE. IV AND ARM BAND REMOVED, CANULA INTACT. PERSONAL BELONGINGS GATHERED AND IN PT POSSESSION. CALL LIGHT IN REACH. ALL SAFETY MEASURES IN PLACE. WAITING FOR PICKUP
--- NOTE | 2021-09-26 17:00 | NUR ---
PT WHEELED TO FRONT FOR SURVEY SUPERVISOR. NO S/S OF DISTRESS. PERSONAL BELONGINGS GATHERED AND IN PT POSSESSION. ALL SAFETY MEASURES IN PLACE.
== END 2021-09-26 17:00 | disposition home or self-care (01) ==
LOC: MED 16:23 → MMU 22:36 → MTU 23:19
PROVIDERS: ADMIT Internal Medicine; ATTEND Internal Medicine
DX: K80.62 Calculus of gallbladder and bile duct with acute cholecystitis without obstruction (principal); Z20.822 Contact with and (suspected) exposure to COVID-19; E80.6 Other disorders of bilirubin metabolism; K82.1 Hydrops of gallbladder; R11.2 Nausea with vomiting, unspecified
CPT/HCPCS: 36415; 47563; 76000; 76705; 77003; 80053; 80061; 81003; 83690; 83735; 85025; 85610; 87081; 87426; 88304; 96361; 96365; 96366; 96375; 96376; 99284; C1887; G0378; J0330; J1100; J1170; J1885; J2270; J2405; J2543; J2704; J3010; J3490; J7030; J7060; J7120; Q0092

== ENCOUNTER 2022-06-09 16:54 | Observation (INO) | payer OTHER ==
[~2022-06-09] VITALS: Ht 170.2 cm; Wt 74.4 kg
[~2022-06-09 16:54] MED LIST changes: +ACET-9525 PO; -NAPR-54 PO; -PRETAB PO
[2022-06-09] MEDS ORDERED: LACTATED RINGERS 500 ML IV ONE (17:10)
[2022-06-09] MEDS ORDERED: LACTATED RINGERS 500 ML IV SCH (17:15)
[2022-06-09] MEDS ORDERED: LACTATED RINGERS 1,000 ML IV SCH (17:15)
[2022-06-09 17:18] LABS: BASOPHILS % (AUTO) 0.6 % (0.0-2.0); EOSINOPHILS # (AUTO) 0.1 K/uL (0-0.4); EOSINOPHILS % (AUTO) 1.2 % (0.0-4.0); HEMATOCRIT 39.9 % (36-48); HEMOGLOBIN 13.2 g/dL (12.0-16.0); LYMPHOCYTES # (AUTO) 2.6 K/uL (2.5-16.5); MEAN CORPUSCULAR HEMOGLOBIN 31 pg (27-31); MEAN CORPUSCULAR HGB CONC 33 g/dL (33-37); MEAN CORPUSCULAR VOLUME 92.5 fL (80-94); MONOCYTES # (AUTO) 0.3 K/uL (0.8-1.0); MONOCYTES % (AUTO) 3.6 % (1.7-9.3); NEUTROPHILS # (AUTO) 4.5 K/uL (1.8-7.7); NEUTROPHILS % (AUTO) 59.6 % (42.2-75.2); PLATELET COUNT (AUTO) 288 K/uL (140-450); RED BLOOD CELL COUNT(AUTO) 4.31 MIL/uL (4.20-5.40); RED CELL DISTRIBUTION WIDTH 13.3 % (11.6-13.7); WHITE BLOOD COUNT (AUTO) 7.6 K/uL (4.8-10.8)
[2022-06-09] MEDS ORDERED: PRETAB PO (17:21)
[2022-06-09 17:31] LABS: ALBUMIN 3.1 g/dL (3.4-5.0); ANION GAP 13.2 (8-16); CARBON DIOXIDE 23.4 mmol/L (21-32); CREATININE 0.7 mg/dL (0.6-1.3); POTASSIUM 3.6 mmol/L (3.5-5.1); TOTAL BILIRUBIN 0.8 mg/dL (0.0-1.0)
[2022-06-09] MEDS: LACTATED RINGERS 500 ML IV SCH ×2 (17:31→17:58)
[2022-06-09 17:37] LABS: BILIRUBIN,URINE NEGATIVE (NEGATIVE); BLOOD, URINE NEGATIVE (NEGATIVE); COLOR,URINE YELLOW (YELLOW); LEUKOCYTE ESTERASE ,URINE TRACE (NEGATIVE); NITRITE, URINE NEGATIVE (NEGATIVE); UGLUCOSE NEGATIVE (NEGATIVE)
[2022-06-09 17:38] LABS: APPEARANCE,URINE HAZY (CLEAR)
[2022-06-09 17:45] VITALS: BP 102/65
[2022-06-09 18:44] LABS: RBC,URINE NONE SEEN /HPF (0-5); WBC,URINE 0-5 /HPF (0-5)
[2022-06-09] MEDS ORDERED: cefTRIAXone 1,000 MG in LIDOCAINE MPF 1% 2.1 ML IM SCH (20:30)
[2022-06-09] MEDS ORDERED: cefTRIAXone 1,000 MG VIAL ONE (20:42)
[2022-06-09] MEDS ORDERED: LIDOCAINE 1% 500 MG/50 ML VIAL ONE (20:42)
== END 2022-06-09 21:03 | disposition home or self-care (01) ==
LOC: MLD 16:54
PROVIDERS: ADMIT Obstetrics & Gynecology; ATTEND Obstetrics & Gynecology
DX: O26.892 Other specified pregnancy related conditions, second trimester (principal); R42 Dizziness and giddiness; Z3A.23 23 weeks gestation of pregnancy
CPT/HCPCS: 36415; 59025; 80053; 81001; 85025; 87086; 96360; 96361; 96372; G0378; G0379; J0696; J2001; J7120

== ENCOUNTER 2022-09-29 17:08 | Inpatient (IN) | payer OTHER ==
[~2022-09-29] VITALS: Ht 170.2 cm; Wt 89.4 kg
[~2022-09-29 17:08] MED LIST changes: -ACET-9525 PO; +PRETAB PO
[2022-09-29] MEDS ORDERED: LACTATED RINGERS 500 ML IV SCH (17:50)
[2022-09-29] MEDS ORDERED: OXYTOCIN 20 UNITS in LACTATED RINGERS 1,000 ML IV SCH (17:50)
[2022-09-29] MEDS ORDERED: METHYLERGONOVINE 0.2 MG/ML AMP IM PRN (17:50)
[2022-09-29] MEDS ORDERED: CARBOPROST 250 MCG/ML AMP IM PRN (17:50)
[2022-09-29] MEDS: LACTATED RINGERS 1,000 ML IV SCH (18:05)
[2022-09-29 18:07] LABS: BASOPHILS % (AUTO) 0.5 % (0.0-2.0); EOSINOPHILS # (AUTO) 0.1 K/uL (0-0.4); EOSINOPHILS % (AUTO) 1.5 % (0.0-4.0); HEMATOCRIT 38.5 % (36-48); HEMOGLOBIN 12.9 g/dL (12.0-16.0); LYMPHOCYTES # (AUTO) 2.2 K/uL (2.5-16.5); LYMPHOCYTES % (AUTO) 30.1 % (20.5-51.1); MEAN CORPUSCULAR HEMOGLOBIN 30 pg (27-31); MEAN CORPUSCULAR HGB CONC 34 g/dL (33-37); MONOCYTES # (AUTO) 0.4 K/uL (0.8-1.0); NEUTROPHILS # (AUTO) 4.6 K/uL (1.8-7.7); NEUTROPHILS % (AUTO) 62.9 % (42.2-75.2); PLATELET COUNT (AUTO) 260 K/uL (140-450); RED BLOOD CELL COUNT(AUTO) 4.27 MIL/uL (4.20-5.40); RED CELL DISTRIBUTION WIDTH 13.1 % (11.6-13.7); WHITE BLOOD COUNT (AUTO) 7.3 K/uL (4.8-10.8)
[2022-09-29 18:21] LABS: PROTHROMBIN TIME 9.9 secs (10.8-13.4)
[2022-09-29 18:24] LABS: ALBUMIN 2.6 g/dL (3.4-5.0); ANION GAP 16.2 (8-16); CARBON DIOXIDE 24.2 mmol/L (21-32); CREATININE 0.8 mg/dL (0.6-1.3); POTASSIUM 3.4 mmol/L (3.5-5.1); TOTAL BILIRUBIN 0.5 mg/dL (0.0-1.0)
[2022-09-29] MEDS ORDERED: OXYTOCIN 20 UNITS/LR PREMIX 1,000 ML IV ONE (18:28)
[2022-09-29 19:03] LABS: APPEARANCE,URINE CLEAR (CLEAR); BILIRUBIN,URINE NEGATIVE (NEGATIVE); BLOOD, URINE NEGATIVE (NEGATIVE); COLOR,URINE YELLOW (YELLOW); LEUKOCYTE ESTERASE ,URINE NEGATIVE (NEGATIVE); NITRITE, URINE NEGATIVE (NEGATIVE); UGLUCOSE NEGATIVE (NEGATIVE)
[2022-09-29] MEDS ORDERED: POTASSIUM CHLORIDE 10 MEQ TABER PO ONE ×2 (19:15→19:19)
[2022-09-29 19:41] LABS: BARBITURATE, URINE NEGATIVE ng/ml (NEG <=200); BENZODIAZEPINE, URINE NEGATIVE ng/mL (NEG <=200); CANNABINOID, URINE NEGATIVE ng/mL (NEG <=50); COCAINE, URINE NEGATIVE ng/mL (NEG <=300); OPIATE, URINE NEGATIVE ng/mL (NEG <=2000); PHENCYCLIDINE SCREEN,URINE NEGATIVE ng/mL (NEG <=25)
[2022-09-29] MEDS ORDERED: MORPHINE SULFATE 5 MG/ML VIAL IVP PRN (20:15)
[2022-09-29] MEDS ORDERED: ONDANSETRON 4 MG/2 ML VIAL IVP PRN (20:15)
[2022-09-29] MEDS ORDERED: MORPHINE SULFATE 10 MG/ML VIAL ONE (23:41)
[2022-09-29 23:46] VITALS: BP 99/60
[2022-09-30] MEDS: LACTATED RINGERS 1,000 ML IV SCH ×4 (00:06→12:54)
[2022-09-30] MEDS ORDERED: ROPIVACAINE 0.2%/NS PREMIX 0 ML EPI ONE (00:28)
[2022-09-30] MEDS ORDERED: fentaNYL citrate 0.05 MG/ML VIAL ONE (00:28)
[2022-09-30] MEDS ORDERED: ROPIVACAINE 0.2%/NS PREMIX 200 ML EPI ONE ×2 (00:29→15:19)
--- NOTE | 2022-09-30 16:21 | NUR ---
PATIENT HAS BEEN SCREENED AND CATEGORIZED LOW NUTRITION RISK. PATIENT WILL BE SEEN WITHIN 7 DAYS OF ADMISSION. 10/06/[address]
[2022-09-30] MEDS ORDERED: HYDROcodone/APAP 5/325 MG 1 TAB TAB PO PRN (18:30)
[2022-09-30] MEDS ORDERED: SIMETHICONE 80 MG TAB.CHEW PO PRN (18:30)
[2022-09-30] MEDS ORDERED: METHYLERGONOVINE 0.2 MG/ML AMP IM PRN ×2 (18:30→18:45)
[2022-09-30] MEDS ORDERED: IBUPROFEN 800 MG TAB PO PRN ×2 (18:30→22:45)
[2022-09-30] MEDS ORDERED: MEASLES, MUMPS, AND RUBELLA 1 VIAL SQVAC ONE ×2 (18:30→23:50)
[2022-09-30] MEDS ORDERED: METHYLERGONOVINE 0.2 MG TAB PO PRN (18:30)
[2022-09-30] MEDS ORDERED: DOCUSATE SODIUM 100 MG GELCAP PO PRN (18:30)
[2022-09-30] MEDS ORDERED: OXYTOCIN 10 UNITS/ML VIAL IM PRN (18:30)
[2022-09-30] MEDS ORDERED: BENZOCAINE/MENTHOL 20%-0.5% 60 GM CAN TP PRN (18:30)
[2022-09-30] MEDS ORDERED: bisacodyL 5 MG TABEC PO PRN (18:30)
[2022-09-30] MEDS ORDERED: IBUPROFEN 600 MG TAB PO PRN (18:30)
[2022-09-30] MEDS ORDERED: MISOPROSTOL 200 MCG TAB ONE (18:34)
[2022-09-30] MEDS ORDERED: LACTATED RINGERS 1,000 ML IV SCH (18:45)
[2022-09-30] MEDS ORDERED: ONDANSETRON 4 MG/2 ML VIAL IVP PRN (18:45)
[2022-09-30] MEDS ORDERED: MORPHINE SULFATE 5 MG/ML VIAL IVP PRN (18:45)
[2022-09-30] MEDS ORDERED: OXYTOCIN 20 UNITS in LACTATED RINGERS 1,000 ML IV SCH (18:45)
[2022-09-30] MEDS ORDERED: MISOPROSTOL 100 MCG TAB PO SCH (19:20)
[2022-09-30] MEDS ORDERED: FLU VACCINE QS2022-23 0.5 ML SYR IMVAC ONE ×2 (23:50→23:55)
[2022-10-01] MEDS: HYDROcodone/APAP 5/325 MG 1 TAB TAB PO PRN ×3 (00:43→19:59)
[2022-10-01 08:39] LABS: HEMATOCRIT 31.9 % (36-48); HEMOGLOBIN 10.8 g/dL (12.0-16.0)
== END 2022-10-01 23:25 | disposition home or self-care (01) | DRG 560 ==
LOC: MLD 17:08 → MFCC 09-30 22:30
PROVIDERS: ADMIT Obstetrics & Gynecology; ATTEND Obstetrics & Gynecology
PROC: 10E0XZZ Delivery of Products of Conception, External Approach (ICD-10-PCS; principal; 2022-09-30)
PROC: 0HQ9XZZ Repair Perineum Skin, External Approach (ICD-10-PCS; 2022-09-30)
PROC: 3E0R3BZ Introduction of Anesthetic Agent into Spinal Canal, Percutaneous Approach (ICD-10-PCS; 2022-09-30)
PROC: 00HU33Z Insertion of Infusion Device into Spinal Canal, Percutaneous Approach (ICD-10-PCS; 2022-09-30)
DX: O66.0 Obstructed labor due to shoulder dystocia (principal); Z37.0 Single live birth; O41.03X0 Oligohydramnios, third trimester, not applicable or unspecified; O70.0 First degree perineal laceration during delivery; Z20.822 Contact with and (suspected) exposure to COVID-19; Z3A.38 38 weeks gestation of pregnancy
CPT/HCPCS: 36415; 51702; 59409; 80053; 80305; 81003; 84132; 85018; 85025; 85610; 85730; 86592; 86886; 86900; 86901; 90707; 90715; J2210; J2270; J2405; J2590; J2795; J3010

== ENCOUNTER 2023-08-23 06:26 | Emergency (ER) | payer OTHER ==
[~2023-08-23] VITALS: Ht 170.2 cm; Wt 74.8 kg
[2023-08-23 07:10] VITALS: BP 123/53; PULSE 90; RESP 16; TEMP 97.4; O2SAT 98
[2023-08-23] MEDS ORDERED: ONDANSETRON 4 MG ODT PO ONE (07:35)
[2023-08-23] MEDS ORDERED: IBUP-2213 PO (08:11)
[2023-08-23] MEDS ORDERED: CIPR500T4 PO (08:11)
[2023-08-23] MEDS ORDERED: ONDA8TAB87 PO (08:11)
[2023-08-23 08:30] VITALS: BP 123/51; PULSE 78; RESP 16; TEMP 97.4; O2SAT 98
== END 2023-08-23 08:30 | disposition home or self-care (01) ==
LOC: MED 06:26
DX: R10.9 Unspecified abdominal pain (principal); R11.2 Nausea with vomiting, unspecified; R19.7 Diarrhea, unspecified; Z79.899 Other long term (current) drug therapy
CPT/HCPCS: 99283; Q0162

== ENCOUNTER 2024-04-16 23:13 | Emergency (ER) | payer OTHER ==
[~2024-04-16] VITALS: Ht 162.6 cm; Wt 74.8 kg
[~2024-04-16 23:13] MED LIST changes: +CIPR500T4 PO; +IBUP-2213 PO; +ONDA8TAB87 PO
[2024-04-16 23:29] VITALS: BP 113/91; PULSE 71; RESP 14; TEMP 97.3; O2SAT 96
[2024-04-17] MEDS: KETOROLAC 30 MG/ML VIAL IVP ONE (00:03)
[2024-04-17 00:12] LABS: APPEARANCE,URINE HAZY (CLEAR); BILIRUBIN,URINE NEGATIVE (NEGATIVE); BLOOD, URINE NEGATIVE (NEGATIVE); COLOR,URINE YELLOW (YELLOW); LEUKOCYTE ESTERASE ,URINE NEGATIVE (NEGATIVE); NITRITE, URINE NEGATIVE (NEGATIVE); PROTEIN,URINE NEGATIVE (NEGATIVE); UGLUCOSE NEGATIVE (NEGATIVE); UROBILINOGEN,URINE 0.2 EU/dL (0.2 - 1)
[2024-04-17] MEDS: NACL 0.9% 1,000 ML IV ONE (00:13)
[2024-04-17 00:18] LABS: BASOPHILS % (AUTO) 0.5 % (0.0-2.0); EOSINOPHILS # (AUTO) 0.1 K/uL (0-0.4); EOSINOPHILS % (AUTO) 2.1 % (0.0-4.0); HEMATOCRIT 40.2 % (36-48); HEMOGLOBIN 13.6 g/dL (12.0-16.0); LYMPHOCYTES # (AUTO) 2.9 K/uL (2.5-16.5); MEAN CORPUSCULAR HEMOGLOBIN 31 pg (27-31); MEAN CORPUSCULAR HGB CONC 34 g/dL (33-37); MEAN CORPUSCULAR VOLUME 92.6 fL (80-94); MONOCYTES # (AUTO) 0.3 K/uL (0.8-1.0); MONOCYTES % (AUTO) 5.1 % (1.7-9.3); NEUTROPHILS # (AUTO) 2.9 K/uL (1.8-7.7); NEUTROPHILS % (AUTO) 46.3 % (42.2-75.2); PLATELET COUNT (AUTO) 283 K/uL (140-450); RED BLOOD CELL COUNT(AUTO) 4.34 MIL/uL (4.20-5.40); RED CELL DISTRIBUTION WIDTH 12.9 % (11.6-13.7); WHITE BLOOD COUNT (AUTO) 6.3 K/uL (4.8-10.8)
[2024-04-17 00:31] LABS: BACTERIA,URINE FEW /HPF (None Seen); RBC,URINE 0-5 /HPF (0-5); SQUAMOUS EPITHELIAL CELL,UR 4-10 (MOD) /LPF (0-3 (FEW)); URINE AMORPHOUS PHOSPHATES 1+ /HPF (None Seen); WBC,URINE 0-5 /HPF (0-5)
[2024-04-17 00:35] LABS: ANION GAP 9.5 (8-16); CALCIUM 9.3 mg/dL (8.5-10.1); CARBON DIOXIDE 29.4 mmol/L (21-32); CREATININE 0.8 mg/dL (0.6-1.3); POTASSIUM 3.9 mmol/L (3.5-5.1)
[2024-04-17 00:48] LABS: ALBUMIN 3.8 g/dL (3.4-5.0); BILIRUBIN,DIRECT 0.2 mg/dL (0.0-0.3); TOTAL PROTEIN, SERUM 7.1 g/dL (6.4-8.2)
[2024-04-17] MEDS ORDERED: IBUP-2213 PO (03:51)
[2024-04-17 04:00] VITALS: BP 95/53; PULSE 67; RESP 15; TEMP 97.6; O2SAT 98
== END 2024-04-17 04:00 | disposition home or self-care (01) ==
LOC: MED 23:13
DX: D39.8 Neoplasm of uncertain behavior of other specified female genital organs (principal); N20.0 Calculus of kidney; Z79.899 Other long term (current) drug therapy; Z90.49 Acquired absence of other specified parts of digestive tract
CPT/HCPCS: 36415; 74176; 76830; 80048; 80076; 81001; 81025; 83690; 85025; 93976; 96361; 96374; 99285; J1885; J7030

== ENCOUNTER 2024-05-19 21:54 | Emergency (ER) | payer OTHER ==
[~2024-05-19] VITALS: Ht 170.2 cm; Wt 68.9 kg
[2024-05-19 22:07] VITALS: BP 127/81; PULSE 80; RESP 20; TEMP 98.9; O2SAT 100
[2024-05-19 23:05] LABS: BASOPHILS % (AUTO) 0.6 % (0.0-2.0); EOSINOPHILS # (AUTO) 0.1 K/uL (0-0.4); HEMATOCRIT 41.4 % (36-48); HEMOGLOBIN 13.8 g/dL (12.0-16.0); LYMPHOCYTES # (AUTO) 2.6 K/uL (2.5-16.5); LYMPHOCYTES % (AUTO) 40.1 % (20.5-51.1); MEAN CORPUSCULAR HEMOGLOBIN 30 pg (27-31); MEAN CORPUSCULAR HGB CONC 34 g/dL (33-37); MEAN CORPUSCULAR VOLUME 90.7 fL (80-94); MONOCYTES # (AUTO) 0.4 K/uL (0.8-1.0); MONOCYTES % (AUTO) 6.9 % (1.7-9.3); NEUTROPHILS # (AUTO) 3.2 K/uL (1.8-7.7); NEUTROPHILS % (AUTO) 50.4 % (42.2-75.2); PLATELET COUNT (AUTO) 254 K/uL (140-450); RED BLOOD CELL COUNT(AUTO) 4.56 MIL/uL (4.20-5.40); RED CELL DISTRIBUTION WIDTH 12.3 % (11.6-13.7); WHITE BLOOD COUNT (AUTO) 6.4 K/uL (4.8-10.8)
[2024-05-19] MEDS: NACL 0.9% 1,000 ML IV ONE (23:05)
[2024-05-19] MEDS: ONDANSETRON 4 MG/2 ML VIAL IVP ONE (23:06)
[2024-05-19] MEDS: MORPHINE SULFATE 4 MG/ML SYR IVP ONE (23:06)
[2024-05-19 23:32] LABS: ANION GAP 16.5 (8-16); CALCIUM 9.4 mg/dL (8.5-10.1); CARBON DIOXIDE 22.9 mmol/L (21-32); CREATININE 0.7 mg/dL (0.6-1.3); POTASSIUM 3.4 mmol/L (3.5-5.1)
[2024-05-19] MEDS: POTASSIUM CHLORIDE 10 MEQ TABER PO ONE (23:41)
[2024-05-20] MEDS ORDERED: HYDR-5071 PO (01:14)
[2024-05-20 01:19] VITALS: BP 100/74; PULSE 63; RESP 16; TEMP 98.9; O2SAT 97
== END 2024-05-20 01:19 | disposition home or self-care (01) ==
LOC: MED 21:54
DX: D27.1 Benign neoplasm of left ovary (principal); Z90.49 Acquired absence of other specified parts of digestive tract; Z79.1 Long term (current) use of non-steroidal anti-inflammatories (NSAID); Z79.2 Long term (current) use of antibiotics; Z79.899 Other long term (current) drug therapy
CPT/HCPCS: 36415; 76856; 80048; 81025; 83605; 85025; 93976; 96361; 96374; 96375; 99285; J2270; J2405; J7030; Q0092

== ENCOUNTER 2024-08-04 06:15 | Day surgery (SDC) | payer OTHER ==
[~2024-08-04] VITALS: Ht 170.2 cm; Wt 70.3 kg
[~2024-08-04 06:15] MED LIST changes: +HYDR-5071 PO
[2024-08-04] MEDS ORDERED: LACTATED RINGERS 1,000 ML IV ONE (07:10)
[2024-08-04] MEDS ORDERED: ceFAZolin 2,000 MG VIAL ONE (07:30)
[2024-08-04] MEDS ORDERED: BUPIVACAINE-MPF 0.25% 30 ML VIAL INJ ONE (07:30)
[2024-08-04] MEDS ORDERED: LACTATED RINGERS 1,000 ML IV SCH (07:35)
[2024-08-04] MEDS ORDERED: ONDANSETRON 4 MG/2 ML VIAL IVP PRN (07:35)
[2024-08-04] MEDS ORDERED: HYDROmorphone 1 MG/ML AMP IVP PRN (07:35)
[2024-08-04] MEDS ORDERED: fentaNYL citrate 0.05 MG/ML VIAL ONE ×2 (07:40→09:56)
[2024-08-04] MEDS ORDERED: MIDAZOLAM 2 MG/2 ML VIAL ONE (07:40)
[2024-08-04] MEDS ORDERED: ROCURONIUM 50 MG/5 ML VIAL IV ONE (07:41)
[2024-08-04] MEDS ORDERED: DEXAMETHASONE 4 MG/ML VIAL ONE (07:41)
[2024-08-04] MEDS ORDERED: ONDANSETRON 4 MG/2 ML VIAL ONE (07:41)
[2024-08-04] MEDS ORDERED: PROPOFOL 200 MG/20 ML VIAL IV ONE (07:41)
[2024-08-04] MEDS ORDERED: SUCCINYLCHOLINE CHLORIDE 200 MG/10 ML VIAL IVP ONE (07:41)
[2024-08-04] MEDS ORDERED: METOCLOPRAMIDE 10 MG/2 ML INJ VIAL ONE (07:41)
[2024-08-04] MEDS ORDERED: SUGAMMADEX SODIUM 200 MG/2 ML VIAL IV ONE (07:42)
[2024-08-04 07:52] LABS: BASOPHILS % (AUTO) 0.3 % (0.0-2.0); EOSINOPHILS # (AUTO) 0.2 K/uL (0-0.4); EOSINOPHILS % (AUTO) 3.5 % (0.0-4.0); HEMATOCRIT 42.7 % (36-48); HEMOGLOBIN 14.1 g/dL (12.0-16.0); LYMPHOCYTES # (AUTO) 2.5 K/uL (2.5-16.5); LYMPHOCYTES % (AUTO) 42.1 % (20.5-51.1); MEAN CORPUSCULAR HEMOGLOBIN 31 pg (27-31); MEAN CORPUSCULAR HGB CONC 33 g/dL (33-37); MEAN CORPUSCULAR VOLUME 92.4 fL (80-94); MONOCYTES # (AUTO) 0.3 K/uL (0.8-1.0); MONOCYTES % (AUTO) 5.5 % (1.7-9.3); NEUTROPHILS # (AUTO) 2.9 K/uL (1.8-7.7); NEUTROPHILS % (AUTO) 48.6 % (42.2-75.2); PLATELET COUNT (AUTO) 247 K/uL (140-450); RED BLOOD CELL COUNT(AUTO) 4.62 MIL/uL (4.20-5.40); RED CELL DISTRIBUTION WIDTH 12.8 % (11.6-13.7); WHITE BLOOD COUNT (AUTO) 6.1 K/uL (4.8-10.8)
[2024-08-04 07:54] LABS: ANION GAP 8.2 (8-16); CARBON DIOXIDE 30.5 mmol/L (21-32); CREATININE 0.7 mg/dL (0.6-1.3); POTASSIUM 3.7 mmol/L (3.5-5.1); TOTAL BILIRUBIN 1.9 mg/dL (0.0-1.0); TOTAL PROTEIN, SERUM 7.2 g/dL (6.4-8.2)
[2024-08-04] MEDS ORDERED: SEVOFLURANE 250 ML BTL INH ONE (08:12)
[2024-08-04] MEDS: LIDOCAINE/EPI 1% 1:100000 20 ML VIAL INJ ONE (08:50)
[2024-08-04] MEDS: ACETAMINOPHEN 100 ML IV SCH (10:05)
[2024-08-04] MEDS: MEPERIDINE 25 MG/ML SYR IVP PRN (10:05)
[2024-08-04] MEDS ORDERED: KETOROLAC 30 MG/ML VIAL ONE (10:11)
[2024-08-04] MEDS ORDERED: HYDROcodone/APAP 5/325 MG 1 TAB TAB PO PRN (10:20)
[2024-08-04] MEDS: KETOROLAC 30 MG/ML VIAL IVP SCH (10:23)
== END 2024-08-04 12:35 | disposition home or self-care (01) ==
LOC: MOR 06:15 → MMU 07:14 → MOR 12:35
PROVIDERS: ATTEND Obstetrics & Gynecology
DX: N83.202 Unspecified ovarian cyst, left side (principal); Z90.49 Acquired absence of other specified parts of digestive tract
CPT/HCPCS: 36415; 58661; 58662; 80053; 81025; 85025; 88307; J0330; J1100; J1885; J2001; J2175; J2250; J2405; J2704; J2765; J3010; J3490; J7030